=== PATIENT | female | born 1960 | race Caucasian/White ===

== ENCOUNTER 2018-06-23 21:10 | Emergency (ER) | payer BC, OTHER ==
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
[2018-06-23] MEDS: Meclizine 25 MG Tab PO ONE (21:59)
[2018-06-23] MEDS: LORazepam 1 MG Tab PO ONE (22:48)
[2018-06-23] MEDS: Ondansetron 4 MG Tab.DIS PO ONE (23:50)
== END 2018-06-24 00:05 | disposition home or self-care (01) ==
LOC: JP.ED 21:10
DX: R42 Dizziness and giddiness (principal); I10 Essential (primary) hypertension; Z79.899 Other long term (current) drug therapy; Z88.1 Allergy status to other antibiotic agents; Z88.8 Allergy status to other drugs, medicaments and biological substances
CPT/HCPCS: 36415; 80048; 85025; 93005; 99284; A9270

== ENCOUNTER 2021-10-08 08:52 | Emergency (ER) | payer OTHER ==
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
--- NOTE | 2021-10-08 10:11 | CR ---
Knee 3V Lt CLINICAL HISTORY: Pain, twisted FINDINGS: No acute fracture or dislocation is noted. There are no osseous lesions. Some mild periarticular patellar spurring. There may be a small joint effusion. Impression: No fracture or dislocation Osteoarthritis Probable small joint effusion
== END 2021-10-08 11:18 | disposition home or self-care (01) ==
LOC: JP.ED 08:52
DX: M25.562 Pain in left knee (principal); I10 Essential (primary) hypertension; E78.00 Pure hypercholesterolemia, unspecified; Z88.8 Allergy status to other drugs, medicaments and biological substances; Z88.1 Allergy status to other antibiotic agents; Z79.899 Other long term (current) drug therapy
CPT/HCPCS: 73562-26-LT; 73562-LT; 99283

== ENCOUNTER 2022-01-11 07:53 | Day surgery (SDC) | payer OTHER ==
[~2022-01-11 07:53] MED LIST: Midazolam 1 MG/ML 2 ML SDV ONE; Propofol 200 MG/20 ML SDV ONE; fentaNYL 100 MCG/2 ML SDV ONE
[2022-01-11] MEDS ORDERED: Sodium Chloride 0.9% 1,000 ML IV SCH (08:15)
== END 2022-01-11 11:00 | disposition home or self-care (01) ==
LOC: JP.SDS 07:53
PROVIDERS: ATTEND Surgery
DX: Z12.11 Encounter for screening for malignant neoplasm of colon (principal); D12.5 Benign neoplasm of sigmoid colon; K57.30 Diverticulosis of large intestine without perforation or abscess without bleeding; K63.89 Other specified diseases of intestine; K21.9 Gastro-esophageal reflux disease without esophagitis; Z80.0 Family history of malignant neoplasm of digestive organs; Z86.73 Personal history of transient ischemic attack (TIA), and cerebral infarction without residual deficits
CPT/HCPCS: 64520; 88305; J2250; J2704; J3010; J7030

== ENCOUNTER 2025-02-14 11:23 | Inpatient (IN) | payer OTHER ==
[2025-02-14 12:27] LABS: BASOPHILS PERCENT AUTO 0.1 % (0.1-1.3); EOSINOPHILS ABSOLUTE AUTO 0.04 K/uL (0.00-0.40); EOSINOPHILS PERCENT AUTO 0.2 % (0.0-5.4); HEMATOCRIT 30.4 % (34.3-46.0); HEMOGLOBIN 10.2 g/dL (11.2-15.5); IMMATURE GRAN ABSOLUTE AUTO 0.09 K/uL (0.00-0.23); IMMATURE GRAN PERCENT AUTO 0.5 % (0.0-0.7); LYMPHOCYTES ABSOLUTE AUTO 1.29 K/uL (0.8-3.3); LYMPHOCYTES PERCENT AUTO 7.7 % (11.4-47.7); MEAN CORPUSCULAR HEMOGLOBIN 30.4 pg (31.6-35.5); MEAN CORPUSCULAR HGB CONC 33.6 g/dL (31.6-35.5); MEAN CORPUSCULAR VOLUME 90.7 fL (81.4-99.0); MONOCYTES ABSOLUTE AUTO 0.42 K/uL (0.20-0.90); MONOCYTES PERCENT AUTO 2.5 % (3.3-12.6); NEUTROPHILS ABSOLUTE AUTO 14.87 K/uL (1.0-7.6); PLATELET COUNT,PLT 259 K/uL (130-375); RED BLOOD CELL COUNT 3.35 M/uL (3.77-5.24); WHITE BLOOD CELL COUNT,WBC 16.7 K/uL (3.2-11.0)
[2025-02-14 12:28] LABS: BASOPHILS ABSOLUTE AUTO 0.02 K/uL (0.00-0.10)
[2025-02-14 12:53] LABS: A/G RATIO 0.6 (1.2-2.2); ALANINE AMINOTRANSFERASE,ALT 18 U/L (12-78); ALBUMIN 2.3 g/dL (3.4-5.0); ALKALINE PHOSPHATASE 90 U/L (46-116); ASPARTATE AMNIOTRANSFERASE,AST 14 U/L (15-37); BILIRUBIN TOTAL 0.8 mg/dL (0.2-1.0); BLOOD UREA NITROGEN,BUN 21 mg/dL (7-18); C-REACTIVE PROTEIN 12.08 mg/dL (<0.50); CALCIUM 9.3 mg/dL (8.5-10.1); CARBON DIOXIDE,CO2 26 mmol/L (21-32); CHLORIDE,CL 98 mmol/L (100-108); CREATININE 1.2 mg/dL (0.6-1.0); EST CRCL DRUG DOSING (CG) 35.27 mL/min; ESTIMATED GFR 50 mL/min (>60); GLUCOSE RANDOM 119 mg/dL (74-106); POTASSIUM,K 4.5 mmol/L (3.6-5.2); PROTEIN TOTAL,TP 6.4 g/dL (6.4-8.2); SODIUM,NA 134 mmol/L (140-148)
[2025-02-14 12:54] LABS: ANION GAP 14.5 mmol/L (5.0-14.0)
[2025-02-14 12:58] LABS: LACTIC ACID 0.8 mmol/L (0.4-2.0)
[2025-02-14] MEDS ORDERED: Sodium Chloride 0.9% 80 ML IV SCH (13:45)
[2025-02-14] MEDS ORDERED: Iopamidol 612 MG/ML 100 ML Bottle IV SCH (13:45)
[2025-02-14] MEDS: diphenhydrAMINE 50 MG/ML SDV IVPUSH ONE (14:02)
[2025-02-14] MEDS: Prochlorperazine 10 MG/2 ML SDV IVPUSH ONE (14:04)
[2025-02-14] MEDS: Sodium Chloride 0.9% 10 ML Syringe FLUSH ONE (14:08)
[2025-02-14] MEDS: Sodium Chloride 0.9% 1,000 ML IV ONE (15:02)
[2025-02-14 16:34] LABS: APPEARANCE,URINE CLEAR (CLEAR); BILIRUBIN,URINE NEGATIVE (NEGATIVE); COLOR,URINE YELLOW (YELLOW); GLUCOSE,URINE NEGATIVE (NEGATIVE); KETONES,URINE NEGATIVE (NEGATIVE); LEUKOCYTE ESTERASE,URINE NEGATIVE (NEGATIVE); NITRITE,URINE NEGATIVE (NEGATIVE); OCCULT BLOOD,URINE NEGATIVE (NEGATIVE); PROTEIN,URINE 30 mg/dL (NEGATIVE)
[2025-02-14 16:40] LABS: AMORPHOUS SEDIMENT,URINE NOT SEEN; BACTERIA,URINE FEW; EPITHELIAL CELLS,URINE FEW; MUCUS,URINE RARE; RBC,URINE 0-5 (0-5); WBC,URINE 0-5 (0-5)
[2025-02-14] MEDS: Piperacillin/Tazobactam 4.5 GM in Sodium Chloride 0.9% 100 ML IV ONE (17:42)
[2025-02-14] MEDS ORDERED: traMADol 50 MG Tab PO PRN (18:16)
[2025-02-14] MEDS ORDERED: Ondansetron 4 MG/2 ML SDV IV PRN (18:16)
[2025-02-14] MEDS ORDERED: Acetaminophen 325 MG Tab PO PRN (18:16)
[2025-02-14] MEDS ORDERED: Sodium Chloride 0.9% 10 ML Syringe FLUSH PRN (18:16)
[2025-02-14] MEDS ORDERED: LORazepam 2 MG/ML SDV IV PRN (18:16)
[2025-02-14] MEDS ORDERED: Albuterol 0.083% 2.5 MG/3 ML Neb Soln NEB PRN (18:16)
[2025-02-14] MEDS ORDERED: Polyethylene Glycol 3350 Powder 17 GM Packet PO PRN (18:16)
[2025-02-14] MEDS ORDERED: Albuterol 6.7 GM Inhaler INH PRN (18:16)
[2025-02-14] MEDS: DAPTOmycin 400 MG in Sodium Chloride 0.9% 50 ML IV SCH (18:38)
[2025-02-14] MEDS: Sodium Chloride 0.9% 1,000 ML IV SCH (18:59)
[2025-02-14] MEDS: Hydrocortisone Sodium Succinate 100 MG/2 ML SDV IVPUSH ONE (20:23)
[2025-02-14] MEDS: Enoxaparin 40 MG/0.4 ML Syringe SUBCUT SCH (20:23)
[2025-02-14] MEDS: Metoprolol Tartrate 50 MG Tab PO SCH (20:53)
[2025-02-14] MEDS: Mycophenolate Mofetil 250 MG Cap PO SCH (20:53)
[2025-02-14] MEDS: Piperacillin/Tazobactam 4.5 GM in Sodium Chloride 0.9% 100 ML IV SCH (20:54)
[2025-02-14] MEDS ORDERED: MYCOPHENOLATE MOFETIL 500 MG PO SCH (21:00)
[2025-02-15 05:41] LABS: HEMATOCRIT 31.6 % (34.3-46.0); HEMOGLOBIN 10.4 g/dL (11.2-15.5); MEAN CORPUSCULAR HEMOGLOBIN 30.5 pg (31.6-35.5); MEAN CORPUSCULAR HGB CONC 32.9 g/dL (31.6-35.5); MEAN CORPUSCULAR VOLUME 92.7 fL (81.4-99.0); RED BLOOD CELL COUNT 3.41 M/uL (3.77-5.24); WHITE BLOOD CELL COUNT,WBC 14.5 K/uL (3.2-11.0)
[2025-02-15 05:56] LABS: CALCIUM 9.3 mg/dL (8.5-10.1); CREATININE 1.4 mg/dL (0.6-1.0); EST CRCL DRUG DOSING (CG) 30.23 mL/min; MAGNESIUM 1.7 mg/dL (1.8-2.4); POTASSIUM,K 4.7 mmol/L (3.6-5.2)
[2025-02-15 06:00] LABS: ANION GAP 14.7 mmol/L (5.0-14.0)
[2025-02-15] MEDS: Diltiazem 120 MG Cap.CD PO SCH (08:02)
[2025-02-15] MEDS: Aspirin 81 MG Tab.EC PO SCH (08:02)
[2025-02-15] MEDS: Pantoprazole 40 MG Tab.CR PO SCH (08:03)
[2025-02-15] MEDS: Venlafaxine 75 MG Cap.ER PO SCH (08:03)
[2025-02-15] MEDS: predniSONE 5 MG Tab PO SCH (08:03)
[2025-02-15] MEDS: Furosemide 20 MG Tab PO SCH (08:04)
[2025-02-15] MEDS: Magnesium Oxide 400 MG Tab PO SCH (11:59)
[2025-02-15] MEDS: Tamsulosin 0.4 MG Cap.ER PO SCH (11:59)
[2025-02-15] MEDS: Losartan 50 MG Tab PO SCH (11:59)
[2025-02-15] MEDS: Piperacillin/Tazobactam/Dext 4.5 GM in Premix Bag 1 BAG IV SCH (13:16)
[2025-02-15] MEDS: Enoxaparin 40 MG/0.4 ML Syringe SUBCUT SCH (20:09)
[2025-02-16 05:46] LABS: HEMATOCRIT 28.2 % (34.3-46.0); HEMOGLOBIN 9.2 g/dL (11.2-15.5); MEAN CORPUSCULAR HEMOGLOBIN 29.9 pg (31.6-35.5); MEAN CORPUSCULAR HGB CONC 32.6 g/dL (31.6-35.5); MEAN CORPUSCULAR VOLUME 91.6 fL (81.4-99.0); RED BLOOD CELL COUNT 3.08 M/uL (3.77-5.24); WHITE BLOOD CELL COUNT,WBC 10.4 K/uL (3.2-11.0)
[2025-02-16 05:57] LABS: CALCIUM 8.7 mg/dL (8.5-10.1); CREATININE 1.4 mg/dL (0.6-1.0); EST CRCL DRUG DOSING (CG) 30.23 mL/min; POTASSIUM,K 3.8 mmol/L (3.6-5.2)
[2025-02-16 06:09] LABS: ANION GAP 12.8 mmol/L (5.0-14.0)
[2025-02-17 06:26] LABS: CALCIUM 9.6 mg/dL (8.5-10.1); CREATININE 1.2 mg/dL (0.6-1.0); EST CRCL DRUG DOSING (CG) 35.31 mL/min
== END 2025-02-18 11:30 | disposition home or self-care (01) | DRG 872 ==
LOC: JP.ED 11:23 → JP.MS 17:04
PROVIDERS: ADMIT Hospitalist; ATTEND Hospitalist
DX: A41.9 Sepsis, unspecified organism (principal); Z94.0 Kidney transplant status; D84.821 Immunodeficiency due to drugs; E27.40 Unspecified adrenocortical insufficiency; K83.09 Other cholangitis; N18.31 Chronic kidney disease, stage 3a; E78.00 Pure hypercholesterolemia, unspecified; Z96.649 Presence of unspecified artificial hip joint; C80.1 Malignant (primary) neoplasm, unspecified; I12.9 Hypertensive chronic kidney disease with stage 1 through stage 4 chronic kidney disease, or unspecified chronic kidney disease; K52.9 Noninfective gastroenteritis and colitis, unspecified; Z91.041 Radiographic dye allergy status; Z88.8 Allergy status to other drugs, medicaments and biological substances; Z88.1 Allergy status to other antibiotic agents; Z79.899 Other long term (current) drug therapy; Z79.51 Long term (current) use of inhaled steroids; Z90.49 Acquired absence of other specified parts of digestive tract; Z90.710 Acquired absence of both cervix and uterus; Z79.82 Long term (current) use of aspirin
CPT/HCPCS: 36415; 71045; 71045-26; 71046; 71046-26; 74177; 74177-26; 80048; 80053; 81001; 83605; 83735; 85025; 85027; 86140; 87040; 96360; 96374; 96375; 97161-GP; 99222; 99232; 99238; 99285-25; A9270-GY; C1751; J0780; J0878; J1200; J1650; J1720; J2543; J7030; J7512; J7515

== ENCOUNTER 2025-09-03 17:35 | Emergency (ER) | payer MEDICARE, BC ==
[2025-09-03 18:22] LABS: CREATININE 2.2 mg/dL (0.5-1.0); ESTIMATED GFR 24 mL/min (>60); PLATELET COUNT,PLT 400 K/uL (130-375); RED BLOOD CELL COUNT 2.85 M/uL (3.77-5.24); WHITE BLOOD CELL COUNT,WBC 10.9 K/uL (3.2-11.0)
[2025-09-03 18:45] LABS: A/G RATIO 1.0 (1.2-2.2); ALANINE AMINOTRANSFERASE,ALT 44 U/L (12-78); ASPARTATE AMNIOTRANSFERASE,AST 20 U/L (15-37); BILIRUBIN TOTAL 0.4 mg/dL (0.2-1.0); BLOOD UREA NITROGEN,BUN 38 mg/dL (7-18); CARBON DIOXIDE,CO2 22 mmol/L (21-32); CHLORIDE,CL 97 mmol/L (100-108); GLUCOSE RANDOM 175 mg/dL (74-106); POTASSIUM,K 4.2 mmol/L (3.6-5.2); PROTEIN TOTAL,TP 6.3 g/dL (6.4-8.2); SODIUM,NA 132 mmol/L (140-148)
[2025-09-03 18:48] LABS: BAND ABSOLUTE MAN 0.76 K/uL; BAND PERCENT MAN 7 % (5-11); LYMPHOCYTES ABSOLUTE MAN 1.74 K/uL (0.8-3.3); LYMPHOCYTES PERCENT MAN 16 % (24-44); METAMYELOCYTE ABSOLUTE MAN 0.55 K/uL; METAMYELOCYTE PERCENT MAN 5 %; MONOCYTES ABSOLUTE MAN 1.74 K/uL (0.20-0.90); MONOCYTES PERCENT MAN 16 % (2-6); MYELOCYTE ABSOLUTE MAN 0.55; MYELOCYTE PERCENT MAN 5 %; NEUTROPHILS ABSOLUTE MAN 5.56 K/uL (1.0-7.6); SEG NEUTROPHILS PERCENT MAN 51 % (36-66)
[2025-09-03 19:06] LABS: NRBC MANUAL 4
[2025-09-03 19:59] LABS: APPEARANCE,URINE CLOUDY (CLEAR); GLUCOSE,URINE NEGATIVE (NEGATIVE); OCCULT BLOOD,URINE LARGE (NEGATIVE)
[2025-09-03 20:05] LABS: SQUAMOUS EPITHELIAL CELLS,UR FEW /HPF; UROTHELIAL CELLS,URINE RARE /HPF
[2025-09-03] MEDS: Iopamidol 755 Mg/ML 100 ML Bottle IV SCH (20:15)
== END 2025-09-03 22:06 | disposition home or self-care (01) ==
LOC: JP.ED 17:35
DX: R04.2 Hemoptysis (principal); R53.1 Weakness; N39.0 Urinary tract infection, site not specified; R31.9 Hematuria, unspecified; I10 Essential (primary) hypertension; E78.00 Pure hypercholesterolemia, unspecified; Z90.49 Acquired absence of other specified parts of digestive tract; Z90.710 Acquired absence of both cervix and uterus; Z88.1 Allergy status to other antibiotic agents; Z88.8 Allergy status to other drugs, medicaments and biological substances; Z91.041 Radiographic dye allergy status; Z79.01 Long term (current) use of anticoagulants; Z79.82 Long term (current) use of aspirin; Z79.899 Other long term (current) drug therapy
CPT/HCPCS: 36415; 71250; 71275; 80053; 81001; 85025; 87086; 96361; 96374; 99284; 99285; J0696; J7030; Q9967